=== PATIENT | male | born 1960 | race African-American/Black ===

== ENCOUNTER → 2018-02-02 | Outpatient (CLI) | payer OTHER ==
[2014-03-19 18:53] VITALS: BP 157/81
--- NOTE | 2018-02-02 16:37 | KCIC ---
CT UPPR EXTREMTY WO CONTRST LT Indication: Left shoulder pain. Preoperative protocol. Exposure: One or more of the following individualized dose reduction techniques were utilized for this examination: 1. Automated exposure control 2. Adjustment of the mA and/or kV according to patient size 3. Use of iterative reconstruction technique. Comparison: None are available. Contrast: None FINDINGS: There is a surgical defect or screw tract at the anterior humeral head. Small subcortical cysts at the posterior greater tuberosity. Marginal osteophytes of the glenohumeral joint. Small subchondral cysts at the glenoid. No evidence of an acute fracture. No aggressive bone destruction. No gross soft tissue abnormality. IMPRESSION: Primary osteoarthritis of the glenohumeral joint. Electronically signed by: Tristan Browne MD (02/02/2018 4:34 PM) [id number]
== END | disposition home or self-care (01) ==
LOC: KCIC CT 09:26
PROVIDERS: ATTEND Orthopaedic Surgery
DX: M19.012 Primary osteoarthritis, left shoulder (principal); M25.712 Osteophyte, left shoulder; M25.812 Other specified joint disorders, left shoulder; I10 Essential (primary) hypertension; E11.9 Type 2 diabetes mellitus without complications
CPT/HCPCS: 73200